=== PATIENT | female | born 1990 | race Caucasian/White ===

== ENCOUNTER 2018-03-14 01:27 | Emergency (ER) | payer BC, OTHER ==
[2018-03-14] MEDS ORDERED: Tetan/Diph/Pertus SYR(Tdap)* 0.5 ML SYR(BOOSTRIX) use SYR IM ONE (03:10)
[2018-03-14] MEDS ORDERED: Tramadol ER(NF) 100 MG TAB.ER PO ONE (03:10)
[2018-03-14] MEDS ORDERED: traMADol TAB* 50 MG ONE (03:18)
[2018-03-14 04:39] VITALS: BP 138/74
--- NOTE | 2018-03-14 08:09 | RAD ---
INDICATION: Neck pain and head pain post fall. Lacerations to the chin. Comparison: No relevant prior exams available on the [facility] P[facility] for comparison. Technique: Noncontrast CT head. Report: Mild RIGHT para midline frontal scalp edema. No significant loculated hematoma evident. Negative for calvarial or skull base fracture. Unremarkable cerebral sulci, ventricles, and basal cisterns. Negative for givens matter white matter obscuration, intra or extra-axial hemorrhage, or mass effect. Unremarkable orbital contents. Clear visualized paranasal sinuses and mastoid air spaces. IMPRESSION: 1. No CT evidence for traumatic brain injury. 2. Mild RIGHT para midline frontal scalp swelling.
--- NOTE | 2018-03-14 08:12 | RAD ---
INDICATION: EtOH. Possible neck injury COMPARISON: None TECHNIQUE: Noncontrast axial source images was performed from the skull base to the thoracic inlet. Coronal and and sagittal reformatted images were generated. FINDINGS: Vertebrae: There is no fracture or acute focal bony lesion. Alignment: The craniocervical junction appears normal. The cervical vertebrae are normally aligned. Central Canal: There are no significant CT abnormalities of the central canal or foramina. MR imaging is a more sensitive method to evaluate the canal and foramina. Intervertebral disc spaces: The disc spaces are maintained. Brain: The visualized brain appears unremarkable. Soft tissues: The visualized soft tissue elements of the neck are unremarkable. The prevertebral soft tissues appear normal. The lung apices are clear. IMPRESSION: NEGATIVE EXAMINATION.
--- NOTE | 2018-03-14 19:49 | ED ---
Lizy Zheng Rebecca, scribed for Babatunde Castillo MD on 03/14/18 at 0256 . Laceration/Wound HPI - HPI Summary HPI Summary: Pt is a 27 y/o F who presents to ED c/o facial lacerations s/p injury. At approximately 0130, the pt reports she fell down stairs and hit her face on a wall. Negative LOC. Lacerations are on the chin and lip. Denies any other injuries. Confirms EtOH use tonight. Unknown Tetanus vaccination status. PSHx ankle surgery 1.5 years ago. - History of Current Complaint Stated Complaint: ETOH/FALL FACIAL INJURY Time Seen by Provider: 03/14/18 02:34 Hx Obtained From: Patient Hx Last Menstrual Period: 05/17/16 Mechanism of Injury: Sharp/Blunt Trauma - Fell into wall Onset/Duration: Still Present Aggravating: Nothing Alleviating: Nothing Current Severity: Moderate Pain Intensity: 5 Pain Scale Used: 0-10 Numeric Associated Signs & Symptoms: Negative - Allergy/Home Medications Allergies/Adverse Reactions: Allergies Allergy/AdvReac Type Severity Reaction Status Date / Time No Known Allergies Allergy Verified 05/20/16 14:16 Home Medications: Home Medications NK [No Home Medications Reported] 03/14/18 [History Confirmed 03/14/18] PMH/Surg Hx/FS Hx/Imm Hx Endocrine/Hematology History: Denies: Hx Diabetes, Hx Thyroid Disease Cardiovascular History: Denies: Hx Hypertension Respiratory History: Denies: Hx Asthma, Hx Chronic Obstructive Pulmonary Disease (COPD) GI History: Denies: Hx Ulcer Infectious Disease History: No Infectious Disease History: Denies: Hx Hepatitis, Hx Human Immunodeficiency Virus (HIV), Traveled Outside the [place] in Last 30 Days - Family History Known Family History: Negative: Cardiac Disease, Hypertension, Diabetes - Social History Alcohol Use: Occasionally Substance Use Type: Reports: Marijuana Substance Use Comment - Amount & Last Used: several times a week Smoking Status (MU): Current Some Day Smoker Review of Systems Negative: Fever Positive: Other - Facial lacerations on chin/lip All Other Systems Reviewed And Are Negative: Yes Physical Exam - Summary Physical Exam Summary: GENERAL: ~Patient is a well developed and nourished F who is lying comfortable in the stretcher. ~Patient is not in any acute respiratory distress. HEAD AND FACE: Hematoma on the right forehead. She has a 1 cm laceration on the corner of the left top lip that is superficial. On the right side she has a laceration that is 1 cm horizontally and 2.5 cm vertically. Swollen right upper lip. EYES: PERRLA, EOMI x 2. EARS: Hearing grossly intact. MOUTH: Oropharynx within normal limits. NECK: Supple, trachea is midline, no adenopathy, no JVD, no carotid bruit. CHEST: Symmetric, no tenderness at palpation LUNGS: Clear to auscultation bilaterally. No wheezing or crackles. CVS: Regular rate and rhythm, S1 and S2 present, no murmurs or gallops appreciated. ABDOMEN: Soft, non-tender. Bowel sounds are normal. No abdominal abnormal pulsations. EXTREMITIES: Full ROM in all major joints, no edema, no cyanosis or clubbing. NEURO: Alert and oriented x 3. No acute neurological deficits. Speech is normal and follows commands. SKIN: Dry and warm Triage Information Reviewed: Yes Vital Signs On Initial Exam: Initial Vitals Temp Pulse Resp BP Pulse Ox 98.4 F 112 16 155/104 99 03/14/18 01:30 03/14/18 01:30 03/14/18 01:30 03/14/18 01:30 03/14/18 01:30 Vital Signs Reviewed: Yes - Олег Coma Scale Best Eye Response: 4 - Spontaneous Best Motor Response: 6 - Obeys Commands Best Verbal Response: 5 - Oriented Coma Scale Total: 15 Procedures - Laceration/Wound Repair 1 Location: face - Left side of the lip Description: Linear Anesthesia: 1.0%, Lido Length, Depth and Shape: 1 cm Closure: Single Layer Suture Type: Other - 6-0 Absorbable Number of Sutures: 3 Sterile Dressing Applied?: Yes - SteriStrips 2 Location: face - Right side of the lip Anesthesia: 1.0%, Lido Length, Depth and Shape: 1 cm horizontally, 2.5 cm vertically Closure: Single Layer Suture Type: Other - 6-0 Absorbable Number of Sutures: 8 Sterile Dressing Applied?: Yes - SteriStrips Diagnostics - Vital Signs Vital Signs Temp Pulse Resp BP Pulse Ox 03/14/18 01:30 98.4 F 112 16 155/104 99 - Laboratory Lab Statement: Any lab studies that have been ordered have been reviewed, and results considered in the medical decision making process. - CT Brain CT CT Interpretation: No Acute Changes - Normal head. ED physician reviewed this radiology report. CT Interpretation Completed By: Radiologist Neck CT CT Interpretation: No Acute Changes - No cervical spine fracture. ED physician reviewed this report. CT Interpretation Completed By: Radiologist Re-Evaluation - Re-Evaluation First Eval Re-Evaluation Time: 03:55 Comment: Laceration repair Laceration Repair Course/Dx - Course Assessment/Plan: Pt is a 27 y/o F who presents with facial lacerations s/p fall tonight. Reviewed her head CT and neck CT which were normal. Given a Tetanus shot, laceration was repaired without difficulty. Pt stable for D/C home to follow up with her PCP. Return precautions given. - Clinical Impression Provider Diagnoses: Facial laceration, Fall Discharge - Sign-Out/Discharge Documenting (check all that apply): Discharge/Admit/Transfer - Discharge - Discharge Plan Condition: Stable Disposition: HOME Patient Education Materials: Laceration (ED), Fall Prevention (ED), Care For Your Absorbable Stitches (ED) Forms: *Work Release Referrals: [facility] REFERRAL [Outside] - 3 Days No Primary Care Phys,NOPCP [Primary Care Provider] - Additional Instructions: RETURN TO ED FOR ANY RETURNING OR WORSENING SYMPTOMS. The documentation as recorded by the Lizy hoyt Rebecca accurately reflects the service I personally performed and the decisions made by , Babatnude Castillo MD.
== END 2018-03-14 04:38 | disposition home or self-care (01) ==
LOC: ED 01:27
DX: S01.81XA Laceration without foreign body of other part of head, initial encounter (principal); S01.511A Laceration without foreign body of lip, initial encounter; W10.9XXA Fall (on) (from) unspecified stairs and steps, initial encounter; Y93.9 Activity, unspecified; Y92.9 Unspecified place or not applicable; Z23 Encounter for immunization; Z72.0 Tobacco use
CPT/HCPCS: 70450; 72125; 90471; 90715; 99282; A9270-GY